=== PATIENT | female | born 1975 | race Caucasian/White ===

== ENCOUNTER 2018-09-05 05:39 | Emergency (ER) | payer OTHER ==
[~2018-09-05] VITALS: Ht 160 cm; Wt 72.6 kg
[2018-09-05 05:40] VITALS: BP 127/84
--- NOTE | 2018-09-05 07:06 | RAD ---
Three-view right knee radiographs 09/05/2018 CLINICAL HISTORY: Right knee pain and stiffness. AP, lateral and oblique digital radiographs of the right knee were obtained. No fracture or dislocation right knee is seen. There is no radiographic evidence of a joint effusion. IMPRESSION: No fracture or dislocation of the right knee is seen. Electronically signed by: Nolan Lorenzo MD (09/05/2018 7:03 AM) [facility]
[2018-09-05] MEDS ORDERED: NAPR-683 PO (07:18)
[2018-09-05] MEDS ORDERED: HYDR-3165 PO (07:18)
--- NOTE | 2018-09-05 07:18 | PHYS DOC ---
Past History Past Medical History: No Pertinent History Past Surgical History: Hysterectomy, Tubal ligation, Other Alcohol Use: None Drug Use: None Adult General Chief Complaint Chief Complaint: KNEE INJURY [facility] HPI Patient is a 43 year old female who presents with complaining of right knee injury. Patient states she was stacking hay last night and hit a stack of hay and felt pain in her right knee since the injury. Patient states she has had painful movement of her knee and bearing weight. Patient rated her pain 3 with rest and 7 or 8 with activity. Patient denies other injuries and focal neurodeficit. Patient states she thinks she had dislocated knee. Patient had history of previous knee problem and applied her old braces but did not take any pain medication and does not want to have pain medication in the emergency room. Review of Systems Review of Systems Constitutional: Denies fever or chills [] Eyes: Denies change in visual acuity, redness, or eye pain [] HENT: Denies nasal congestion or sore throat [] Respiratory: Denies cough or shortness of breath [] Cardiovascular: No additional information not addressed in HPI [] GI: Denies abdominal pain, nausea, vomiting, bloody stools or diarrhea [] : Denies dysuria or hematuria [] Musculoskeletal: Denies back pain, reports joint pain [] Integument: Denies rash or skin lesions [] Neurologic: Denies headache, focal weakness or sensory changes [] Endocrine: Denies polyuria or polydipsia [] All other systems were reviewed and found to be within normal limits, except as documented in this note. Allergies Allergies Allergies Coded Allergies Type Severity Reaction Last Updated Verified No Known Drug Allergies 09/05/18 No Physical Exam Physical Exam Constitutional: Well developed, well nourished, mild distress, non-toxic appearance. [] HENT: Normocephalic, atraumatic. Eyes: PERRLA, EOMI, conjunctiva normal, no discharge. [] Neck: Normal range of motion, no tenderness, supple, no stridor. [] Cardiovascular:Heart rate regular rhythm, no murmur [] Lungs & Thorax: Bilateral breath sounds clear to auscultation [] Extremities: Right knee without deformity or edema or contusion, no focal tenderness, painful range of motion, normal neurovascular exam. Neurologic: Alert and oriented X 3, normal motor function, normal sensory function, no focal deficits noted. [] Psychologic: Affect normal, judgement normal, mood normal. [] Current Patient Data Vital Signs Vital Signs Date Time Temp Pulse Resp B/P (MAP) Pulse Ox O2 Delivery O2 Flow Rate FiO2 09/05/18 05:40 97.7 104 18 100 Room Air EKG EKG [] Radiology/Procedures Radiology/[place] [address] IMAGING REPORT Signed PATIENT: DAMIAN PERKINS ACCOUNT: [id number] : 1975 LOCATION: ER AGE: 43 SEX: F EXAM STATUS: REG ER ORD. PHYSICIAN: DASHAWN MARSH MD REASON: injury PROCEDURE: KNEE RIGHT 3V Three-view right knee radiographs 09/05/2018 CLINICAL HISTORY: Right knee pain and stiffness. AP, lateral and oblique digital radiographs of the right knee were obtained. No fracture or dislocation right knee is seen. There is no radiographic evidence of a joint effusion. IMPRESSION: No fracture or dislocation of the right knee is seen. Electronically signed by: Nolan Lorenzo MD (09/05/2018 7:03 AM) [facility] DICTATED AND SIGNED BY: NOLAN LORENZO MD DATE: 09/05/18 07 CC: DASHAWN MARSH MD; JONATHAN REN ~ Course & Med Decision Making Course & Med Decision Making Pertinent Imaging studies reviewed. (See chart for details) Evaluation of patient in ER showed 43 year old female patient with direct injury to right knee since last night and painful range of motion and bearing weight. Patient did not have contusion or deformity or edema of right knee. X- ray did not show acute finding. Patient had home knee brace and crutches was provided in ER. She did not want to have pain medication in ER. Plan discharge patient home with diagnosis of right knee sprain and instruction to apply ice and use crutches and follow-up with her primary care physician. Dragon Disclaimer Dragon Disclaimer This electronic medical record was generated, in whole or in part, using a voice recognition dictation system. Departure Departure: Impression: Primary Impression: Sprain of right knee Disposition: HOME, SELF-CARE (at 0715) Condition: STABLE Referrals: JONATHAN REN (PCP) Patient Instructions: Knee Sprain Additional Instructions: Apply ice on affected area Follow-up with your primary care physician in 3-5 days Return to ER if not getting better use home knee brace and provided crutches Scripts Hydrocodone Bit/Acetaminophen (NORCO 5-325 TABLET) 1 Each Tablet 1 TAB PO PRN Q6HRS PRN for PAIN, #14 TAB 0 Refills Prov: DASHAWN MARSH MD 09/05/18 Naproxen (NAPROSYN) 500 Mg Tablet 500 MG PO BID for pain, #20 TAB Prov: DASHAWN MARSH MD 09/05/18 Problem Qualifiers Primary Impression: Sprain of right knee Encounter type: initial encounter Involved ligament of knee: unspecified ligament Qualified Codes: S83.91XA - Sprain of unspecified site of right knee , initial encounter DASHAWN MARSH MD Sep 05, 2018 07:18
== END 2018-09-05 07:25 | disposition home or self-care (01) ==
LOC: ER 05:39
DX: S83.91XA Sprain of unspecified site of right knee, initial encounter (principal); W22.8XXA Striking against or struck by other objects, initial encounter; Y93.89 Activity, other specified; Y92.89 Other specified places as the place of occurrence of the external cause; Y99.8 Other external cause status
CPT/HCPCS: 73562; 99283